=== PATIENT | male | born 1980 | race Two or more races ===

== ENCOUNTER 2022-10-10 10:22 | Emergency (ER) | payer MEDICARE, OTHER ==
[~2022-10-10] VITALS: Ht 177.8 cm; Wt 99.8 kg
[2022-10-10] MEDS ORDERED: IV NS 0.9% 1,000 ML BAG IV ONE (11:00)
[2022-10-10] MEDS ORDERED: ONDANSETRON HCL/PF 4 MG/2 ML VIAL IVP ONE (11:00)
[2022-10-10] MEDS ORDERED: HALOPERIDOL LACTATE INJ 5 MG/ML VIAL IM ONE (11:00)
[2022-10-10] MEDS ORDERED: ONDANSETRON HCL/PF 4 MG/2 ML VIAL ONE (11:07)
[2022-10-10] MEDS ORDERED: HALOPERIDOL LACTATE INJ 5 MG/ML VIAL ONE (11:07)
[2022-10-10 11:21] LABS: BASOPHILS # (AUTO) 0.1 K/uL (0.0-0.2); BASOPHILS % (AUTO) 0.8 % (0.0-2.0); EOSINOPHILS # (AUTO) 0.2 K/uL (0.0-0.7); EOSINOPHILS % (AUTO) 1.7 % (0.0-6.0); HEMATOCRIT 47 % (39-51); HEMOGLOBIN 15.5 g/dL (13.5-17.5); LYMPHOCYTES # (AUTO) 4.5 K/uL (0.8-4.8); LYMPHOCYTES % (AUTO) 32.8 % (20.0-44.0); MEAN CORPUSCULAR HEMOGLOBIN 30 PG (26.0-33.0); MEAN CORPUSCULAR HGB CONC 33 g/dl (31.0-36.0); MEAN CORPUSCULAR VOLUME 91 fL (80-96); MONOCYTES # (AUTO) 1.1 K/uL (0.1-1.30); MONOCYTES % (AUTO) 8.2 % (2.0-12.0); NEUTROPHILS # (AUTO) 7.7 K/uL (1.8-8.9); NEUTROPHILS % (AUTO) 56.5 % (43.0-81.0); PLATELET COUNT (AUTO) 375 K/uL (150-450); RED BLOOD CELL COUNT(AUTO) 5.14 MIL/uL (4.5-6.0); RED CELL DISTRIBUTION WIDTH 14.6 % (11.5-15.0); WHITE BLOOD COUNT (AUTO) 13.6 K/uL (4.3-11.0)
[2022-10-10 11:31] LABS: CREATININE 1.3 mg/dL (0.6-1.3); POTASSIUM 4.3 mmol/L (3.5-5.1)
[2022-10-10 11:37] LABS: ALBUMIN 3.9 g/dL (3.4-5.0); BILIRUBIN,DIRECT 0.1 mg/dL (0.0-0.2); BILIRUBIN,TOTAL 0.6 mg/dL (0.2-1.0); TOTAL PROTEIN, SERUM 8.4 g/dL (6.4-8.2)
[2022-10-10] MEDS ORDERED: ONDA4TAB5 PO (11:51)
[2022-10-10 12:59] VITALS: BP 147/94; TEMP 98.7; O2SAT 98
== END 2022-10-10 12:59 | disposition home or self-care (01) ==
LOC: ER 10:31
DX: R11.15 Cyclical vomiting syndrome unrelated to migraine (principal); I10 Essential (primary) hypertension
CPT/HCPCS: 99284; 96374; 96361; 85025; 80048; 83690; 80076; 36415; 96372; J1630; J2405; J7030

== ENCOUNTER 2023-09-30 19:55 | Emergency (ER) | payer OTHER, MEDICAID ==
[~2023-09-30] VITALS: Ht 175.3 cm; Wt 74.8 kg
[~2023-09-30 19:55] MED LIST: ONDA4TAB5 PO
[2023-09-30] MEDS: HALOPERIDOL LACTATE INJ 5 MG/ML VIAL IV ONE (20:19)
[2023-09-30] MEDS ORDERED: MORPHINE SULFATE INJ 4 MG/ML DISP.SYRIN ONE (20:19)
[2023-09-30] MEDS ORDERED: ONDANSETRON HCL/PF 4 MG/2 ML VIAL ONE (20:19)
[2023-09-30] MEDS ORDERED: HALOPERIDOL LACTATE INJ 5 MG/ML VIAL ONE (20:19)
[2023-09-30] MEDS: IV NS 0.9% 1,000 ML BAG IV ONE (20:19)
[2023-09-30] MEDS: MORPHINE SULFATE INJ 2 MG/ML DISP.SYRIN IV ONE (20:20)
[2023-09-30] MEDS: ONDANSETRON HCL/PF 4 MG/2 ML VIAL IVP ONE (20:20)
[2023-09-30 20:33] LABS: LYMPHOCYTES # (AUTO) 0.9 K/uL (0.8-4.8); MEAN CORPUSCULAR VOLUME 89 fL (80-96)
[2023-09-30 20:38] LABS: BASOPHILS # (AUTO) 0.2 K/uL (0.0-0.2); BASOPHILS % (AUTO) 0.7 % (0.0-2.0); HEMATOCRIT 41 % (39-51); HEMOGLOBIN 13.6 g/dL (13.5-17.5); LYMPHOCYTES % (AUTO) 4.1 % (20.0-44.0); MEAN CORPUSCULAR HEMOGLOBIN 29 PG (26.0-33.0); MEAN CORPUSCULAR HGB CONC 33 g/dl (31.0-36.0); MONOCYTES # (AUTO) 1.8 K/uL (0.1-1.30); MONOCYTES % (AUTO) 8.1 % (2.0-12.0); NEUTROPHILS # (AUTO) 19.7 K/uL (1.8-8.9); NEUTROPHILS % (AUTO) 87.1 % (43.0-81.0); PLATELET COUNT (AUTO) 309 K/uL (150-450); RED BLOOD CELL COUNT(AUTO) 4.67 MIL/uL (4.5-6.0); RED CELL DISTRIBUTION WIDTH 15.2 % (11.5-15.0); WHITE BLOOD COUNT (AUTO) 22.7 K/uL (4.3-11.0)
[2023-09-30 20:39] LABS: CALCIUM, SERUM 9.1 mg/dL (8.5-10.1); CREATININE 1.3 mg/dL (0.6-1.3)
[2023-09-30 20:49] LABS: ALBUMIN 3.8 g/dL (3.4-5.0); BILIRUBIN,DIRECT 0.1 mg/dL (0.0-0.2); BILIRUBIN,TOTAL 0.6 mg/dL (0.2-1.0); TOTAL PROTEIN, SERUM 8.3 g/dL (6.4-8.2)
[2023-09-30 20:57] LABS: APPEARANCE,URINE CLEAR (CLEAR); BILIRUBIN,URINE NEGATIVE (NEGATIVE); BLOOD, URINE 1+ Ery/uL (NEGATIVE); COLOR,URINE YELLOW (YELLOW); KETONES,URINE 1+ mg/dL (NEGATIVE); LEUKOCYTE ESTERASE ,URINE NEGATIVE (NEGATIVE); NITRITE, URINE NEGATIVE (NEGATIVE); PROTEIN,URINE NEGATIVE (NEGATIVE); UGLUCOSE TRACE mg/dL (NEGATIVE); UROBILINOGEN,URINE 0.2 EU/dL (0.2)
[2023-09-30 21:17] LABS: ADD URINE CULTURE NO; BACTERIA,URINE 1+ /HPF (None Seen); WBC,URINE NONE SEEN /HPF (0-3)
[2023-09-30 21:18] LABS: SQUAMOUS EPITHELIAL CELL,UR Rare /HPF (None Seen)
[2023-09-30] MEDS: POTASSIUM CHLORIDE 20 MEQ TAB.PRT.SR PO ONE (22:31)
[2023-09-30] MEDS ORDERED: ONDA4TAB11 PO (23:03)
[2023-09-30 23:29] VITALS: BP 138/86; TEMP 98; O2SAT 99
== END 2023-09-30 23:29 | disposition home or self-care (01) ==
LOC: ER 20:09
DX: R11.2 Nausea with vomiting, unspecified (principal); F12.10 Cannabis abuse, uncomplicated; R10.84 Generalized abdominal pain; I10 Essential (primary) hypertension; Z95.5 Presence of coronary angioplasty implant and graft
CPT/HCPCS: 99285; 74176; 96374; 96375; 96361; 85025; 80048; 83690; 80076; 81001; 36415; J1630; J2270; J2405; J7030

== ENCOUNTER 2023-10-03 12:48 | Emergency (ER) | payer OTHER, MEDICAID ==
[~2023-10-03] VITALS: Ht 177.8 cm; Wt 91.2 kg
[~2023-10-03 12:48] MED LIST changes: +ONDA4TAB11 PO
[2023-10-03 16:20] LABS: BASOPHILS # (AUTO) 0.1 K/uL (0.0-0.2); BASOPHILS % (AUTO) 0.4 % (0.0-2.0); EOSINOPHILS % (AUTO) 0.1 % (0.0-6.0); HEMATOCRIT 41 % (39-51); HEMOGLOBIN 13.5 g/dL (13.5-17.5); LYMPHOCYTES % (AUTO) 10.8 % (20.0-44.0); MEAN CORPUSCULAR HEMOGLOBIN 29 PG (26.0-33.0); MEAN CORPUSCULAR HGB CONC 33 g/dl (31.0-36.0); MEAN CORPUSCULAR VOLUME 88 fL (80-96); MONOCYTES # (AUTO) 1.5 K/uL (0.1-1.30); MONOCYTES % (AUTO) 8.1 % (2.0-12.0); NEUTROPHILS # (AUTO) 15.2 K/uL (1.8-8.9); NEUTROPHILS % (AUTO) 80.6 % (43.0-81.0); PLATELET COUNT (AUTO) 298 K/uL (150-450); RED BLOOD CELL COUNT(AUTO) 4.62 MIL/uL (4.5-6.0); RED CELL DISTRIBUTION WIDTH 15.8 % (11.5-15.0); WHITE BLOOD COUNT (AUTO) 18.9 K/uL (4.3-11.0)
[2023-10-03 16:27] LABS: CALCIUM, SERUM 8.8 mg/dL (8.5-10.1); CREATININE 1.2 mg/dL (0.6-1.3); POTASSIUM 3.4 mmol/L (3.5-5.1)
[2023-10-03 16:33] LABS: ALBUMIN 3.3 g/dL (3.4-5.0); BILIRUBIN,DIRECT 0.2 mg/dL (0.0-0.2); BILIRUBIN,TOTAL 0.9 mg/dL (0.2-1.0)
[2023-10-03] MEDS: IV NS 0.9% 1,000 ML BAG IV ONE (16:55)
[2023-10-03] MEDS: ONDANSETRON HCL/PF 4 MG/2 ML VIAL IVP ONE (16:55)
[2023-10-03] MEDS ORDERED: ONDANSETRON HCL/PF 4 MG/2 ML VIAL ONE (17:00)
[2023-10-03] MEDS: HYDROCODONE/APAP 5/325MG TABLET PO ONE (17:00)
[2023-10-03] MEDS ORDERED: HYDROCODONE/APAP 5/325MG TABLET ONE (17:01)
[2023-10-03 18:30] VITALS: BP 132/78; TEMP 98.1; O2SAT 100
== END 2023-10-03 18:30 | disposition home or self-care (01) ==
LOC: ER 13:00
DX: R10.84 Generalized abdominal pain (principal); R11.2 Nausea with vomiting, unspecified; I10 Essential (primary) hypertension; F19.10 Other psychoactive substance abuse, uncomplicated; Z95.0 Presence of cardiac pacemaker
CPT/HCPCS: 99283; 96374; 96361; 85025; 80048; 83690; 80076; 36415; J2405; J7030